=== PATIENT | female | born 2005 | race Caucasian/White ===

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

== ENCOUNTER 2024-06-11 06:11 | Inpatient (IN) ==
[2024-06-11] MEDS ORDERED: REGLAN INJ 10 MG VIAL IVP PRN (06:26)
[2024-06-11] MEDS: D5 1/2 NS 1,000 ML 1,000 ML IV SCH (06:40)
--- NOTE | 2024-06-11 07:07 | DR.OB ---
OB QUICK NOTE Assessment/Plan (1) Post-dates : Assessment/Plan: L&D 06/11/24 at 7:00am S-No complaint. O-Afebrile,VSS UBQ=392 with good LTV, +accel, no decel. CTX=irregular, mild CVX=3cm/50%/-1/VTX AROM with clear fluid. IUPC and FSE placed. A-IUP at 40 2/7 weeks for induction Post dates P-Begin pitocin induction F/U labs Anticipate
[2024-06-11] MEDS: OXYTOCIN 20 UNIT/1,000 ML-NS 20 UNIT/1,000 ML PLAST..BAG IV PRN (07:10)
[2024-06-11 07:40] LABS: BILIRUBIN,URINE NEGATIVE (NEGATIVE); BLOOD/HEMOGLOBIN,URINE 2+ (NEGATIVE); GLUCOSE, URINE NEGATIVE (NEGATIVE); KETONES,URINE NEGATIVE (NEGATIVE); LEUKOCYTE ESTERASE ,URINE 1+ (NEGATIVE); NITRITES,URINE NEGATIVE (NEGATIVE); PROTEIN,URINE 3+ (NEGATIVE); UROBILINOGEN,URINE NORMAL (NORMAL)
[2024-06-11 07:52] LABS: RED CELL DISTRIBUTION WIDTH 15.2 % (11.6-16.5)
[2024-06-11 07:54] LABS: APPEARANCE,URINE CLEAR (CLEAR); COLOR,URINE YELLOW (YELLOW)
[2024-06-11 07:55] LABS: BACTERIA,URINE TRACE /HPF (NEGATIVE); RBC,URINE 0-2 /HPF (0-3); SQUAMOUS EPITHELIAL CELL,UR MODERATE /HPF (NEGATIVE)
[2024-06-11 08:03] LABS: BASOPHILS # (AUTO) 0.1 X10^3/uL (0.0-0.1); BASOPHILS % (AUTO) 0.8 % (0.2-1.0); EOSINOPHILS % (AUTO) 0.5 % (0.9-2.9); HEMATOCRIT 28.8 % (36.0-47.0); HEMOGLOBIN 9.4 g/dL (12.0-16.0); LYMPHOCYTES # (AUTO) 2.3 X10^3/uL (1.3-2.9); LYMPHOCYTES % (AUTO) 29.5 % (21.0-51.0); MEAN CORPUSCULAR HGB CONC 32.6 g/dL (33.0-35.0); MEAN CORPUSCULAR VOLUME 79.8 fL (80.0-100.0); MEAN PLATELET VOLUME 9.7 fL (7.4-11.0); MONOCYTES # (AUTO) 0.4 x10^3/uL (0.3-0.8); MONOCYTES % (AUTO) 5.4 % (0.0-13.0); NEUTROPHILS % (AUTO) 63.8 % (42.0-75.0); PLATELET COUNT 168 X10^3/uL (150.0-450.0); RED BLOOD COUNT 3.61 X10^6/uL (3.5-5.4); WHITE BLOOD COUNT 7.8 X10^3/uL (3.6-10.0)
[2024-06-11] MEDS: LABETALOL HCL IVP ONE (08:05)
[2024-06-11] MEDS: NUBAIN INJ 10 MG AMP ONE ×2 (08:16→10:33)
[2024-06-11] MEDS: NUBAIN INJ 20 MG AMP IVP PRN (08:16)
[2024-06-11] MEDS: PITOCIN ONE (08:47)
[2024-06-11] MEDS: D5 1/2 NS 1,000 ML 1,000 ML IV ONE (08:48)
[2024-06-11] MEDS: NORMODYNE INJ 20 MG VIAL ONE ×3 (08:49→09:58)
[2024-06-11] MEDS: LR 1,000 ML IV 1,000 ML IV ONE (12:15)
[2024-06-11] MEDS: NAROPIN EPIDURAL 0.2% 100 ML ONE (12:44)
[2024-06-11] MEDS: FENTANYL VIAL INJ 100 mcg ONE (12:44)
[2024-06-11] MEDS: BETADINE SOLN ONE (14:35)
[2024-06-11] MEDS: PITOCIN IVP ONE (15:01)
[2024-06-11] MEDS ORDERED: MOTRIN TAB 800 MG PO PRN ×2 (15:11→15:24)
--- NOTE | 2024-06-11 15:11 | DR.OB ---
OB QUICK NOTE Assessment/Plan (1) Post-dates : Assessment/Plan: Delivery Note SAFETY SPECIALIST 14:59 Patient complete and pushing. Head delivered over intact perineum. No nuchal cord. Nose and mouth bulb suctioned. Body delivered over intact perineum. Cord clamped x 2 and cut. handed to attendant. Cord sent for gases. Late meconium noted. Placenta delivered spontaneously / intact / 3 vessel cord. No CVX / vaginal / perineal tears noted. Viable female delivered by , VTX/OA, wt=6'15" and 8/9, stable to NBN. Mother stable to RR. IMS=[id number].
[2024-06-11] MEDS ORDERED: ADACEL or BOOSTRIX TDaP VACCINE IM ONE (15:24)
[2024-06-11] MEDS ORDERED: DERMOPLAST PAIN RELIEF SPRAY TOP PRN (15:24)
[2024-06-11] MEDS ORDERED: MILK OF MAGNESIA PO PRN (15:24)
[2024-06-11] MEDS ORDERED: AMBIEN PO PRN (15:24)
[2024-06-11] MEDS: OXYTOCIN 20 UNIT/1,000 ML-NS 20 UNIT/1,000 ML PLAST..BAG IV SCH (16:20)
[2024-06-11] MEDS: ZOFRAN INJ 4 MG VIAL IVP PRN (16:48)
[2024-06-11] MEDS: NORMODYNE TAB 100 MG PO SCH (17:05)
[2024-06-11] MEDS: NORMODYNE TAB 100 MG PO ONE (22:19)
[2024-06-12 04:51] LABS: HEMATOCRIT 25.1 % (36.0-47.0); HEMOGLOBIN 8.1 g/dL (12.0-16.0)
[2024-06-12] MEDS: PRENATAL PLUS PO SCH (08:22)
[2024-06-12] MEDS: NORMODYNE TAB 100 MG PO SCH (08:22)
[2024-06-12 08:43] VITALS: O2SAT 97
[2024-06-12 12:44] VITALS: BP 146/94; PULSE 85; RESP 21; TEMP 98
== END 2024-06-12 17:40 | disposition home or self-care (01) | DRG 806 ==
LOC: LD 06:11 → MED/SURG 16:03
PROVIDERS: ADMIT Specialist; ATTEND Specialist
DX: O13.4 Gestational [pregnancy-induced] hypertension without significant proteinuria, complicating childbirth; E87.1 Hypo-osmolality and hyponatremia; O48.0 Post-term pregnancy; Z37.0 Single live birth; Z3A.40 40 weeks gestation of pregnancy; Z01.812 Encounter for preprocedural laboratory examination